=== PATIENT | male | born 1980 | race Caucasian/White ===

== ENCOUNTER 2019-07-11 13:28 | Emergency (ER) | payer OTHER ==
[~2019-07-11] VITALS: Ht 170.2 cm; Wt 99.8 kg
[~2019-07-11 13:28] MED LIST: DIPHENHIST50 MG PO; FLEXERIL PO; IBUPROFEN 800800 M1 PO; NOHOMEMEDICATIONS; NORCO 5-325 TA1 EACH PO; PREDNISONE 10 M10 MG PO; TRIAMCINOLONE A80 G2 TOP; ZOFRAN ODT4 MG PO
[2019-07-11] MEDS ORDERED: TESTOSTERO200 MG/1 M IM (13:40)
[2019-07-11] MEDS ORDERED: KEFLEX500 M2 PO (15:17)
[2019-07-11] MEDS ORDERED: IBUPROFEN 800800 M1 PO (15:17)
[2019-07-11 15:38] VITALS: BP 166/74
== END 2019-07-11 15:38 | disposition home or self-care (01) ==
LOC: M.ERS 13:28
DX: S61.217A Laceration without foreign body of left little finger without damage to nail, initial encounter (principal); S61.215A Laceration without foreign body of left ring finger without damage to nail, initial encounter; F17.220 Nicotine dependence, chewing tobacco, uncomplicated; W31.2XXA Contact with powered woodworking and forming machines, initial encounter; Y93.89 Activity, other specified; Y92.89 Other specified places as the place of occurrence of the external cause; Y99.8 Other external cause status